=== PATIENT | male | born 1985 | race Caucasian/White ===

== ENCOUNTER 2021-11-12 18:02 | Emergency (ER) | payer BC, OTHER ==
[2021-11-12 19:35] LABS: HEMOGLOBIN 15.9 gm/dl (14.0-17.5); RED BLOOD COUNT 5.27 M/UL (4.20-5.50); WHITE BLOOD COUNT 14.8 K/UL (4.5-11.0)
[2021-11-12] MEDS ORDERED: TORADOL 10 MG T10 MG PO (21:12)
== END 2021-11-12 22:10 | disposition home or self-care (01) ==
LOC: ER1 18:02
PROVIDERS: Physician Assistant
DX: N13.2 Hydronephrosis with renal and ureteral calculous obstruction (principal); Z87.442 Personal history of urinary calculi; Z88.0 Allergy status to penicillin; Z88.8 Allergy status to other drugs, medicaments and biological substances
CPT/HCPCS: 80053; 81001; 85025; 96372; 99284; J1885; J7030